=== PATIENT | female | born 1960 | race American Indian/Alaskan Native ===

== ENCOUNTER 2018-05-14 05:23 | Day surgery (SDC) | payer OTHER ==
[~2018-05-14] VITALS: Ht 170.2 cm; Wt 78.0 kg
[~2018-05-14 05:23] MED LIST: ACCUNEB SO1.25 MG/1 INH; AMITRIPTYLINE H50 M2 PO; BLACK COHOSH40 MG PO; FLEXERIL PO; GABAPENTIN800 M1 PO; HYDROCODON-ACE1 EAC5 PO; IBUPROFEN 800800 M1 PO; KLOR-CON 1010 MEQ PO; LISINOPRIL5 MG PO; OMEPRAZOLE40 MG PO; PHENERGAN 25 MG25 M1 PO; TOPROL XL25 MG PO; VENTOLIN HFA 1818 GM INH
[2018-05-14 06:19] VITALS: BP 162/91
[2018-05-14 06:43] LABS: HEMATOCRIT 44.6 % (37.0-47.0); HEMOGLOBIN 15.3 gm/dL (12.0-15.0)
--- NOTE | 2018-05-14 08:01 | EKG ---
[address] [place] [address] ELECTROCARDIOGRAM REPORT Name: SARAI LANDRY Room #: [address] [place] [address]#: [id number] Admission: 05/14/18 Attend Phys: Glenn Gonzalez Discharge: Date of : 58 Report #: [id number] THIS REPORT FOR: //name// [facility] Test Date: 2018-05-14 Test Time: 06:16:29 Pat Name: SARAI LANDRY Department: Room: 150 Gender: F [employer] Lieutenant: SURENDRA : 1960 Requested By: Glenn Granados Order Number: [id number] MD: Isma Nguyễn Measurements Intervals [place] Rate: 84 P: 67 NM: 165 QRS: 4 QRSD: 96 T: 63 QT: 393 QTc: 465 Interpretive Statements Sinus rhythm Normal tracing No previous ECG available for comparison Electronically Signed On 05-14-2018 8:01:10 LAST SORTER by Isma Nguyễn [email or web address] <ELECTRONICALLY SIGNED> By: Isma Nguyễn MD, [facility] 05/14/18 0801 0616 5 Isma Nguyễn MD, FACC /EPI
[2018-05-14] MEDS ORDERED: SENNA8.6 MG PO (08:50)
[2018-05-14] MEDS ORDERED: NORCO 5-325 TA1 EACH PO (08:50)
[2018-05-14] MEDS ORDERED: ONDANSETRON HCL4 M2 PO (08:50)
[2018-05-14 10:00] VITALS: BP 162/91
== END 2018-05-14 13:05 | disposition home or self-care (01) ==
LOC: OR 05:23 → TBA 05:24 → OR 09:55
PROVIDERS: Surgery
DX: K80.10 Calculus of gallbladder with chronic cholecystitis without obstruction (principal); K82.8 Other specified diseases of gallbladder; I10 Essential (primary) hypertension; J43.9 Emphysema, unspecified; E78.5 Hyperlipidemia, unspecified; K21.9 Gastro-esophageal reflux disease without esophagitis; F17.210 Nicotine dependence, cigarettes, uncomplicated; Z90.710 Acquired absence of both cervix and uterus; Z86.73 Personal history of transient ischemic attack (TIA), and cerebral infarction without residual deficits; Z98.890 Other specified postprocedural states; Z79.899 Other long term (current) drug therapy; Z88.0 Allergy status to penicillin; Z88.2 Allergy status to sulfonamides; Z88.8 Allergy status to other drugs, medicaments and biological substances; Z79.891 Long term (current) use of opiate analgesic
CPT/HCPCS: 50010; 50101; 50249; 50411; 50555; 50558; 50962; 51297; 51489; 51975; 52265; 53307; 53310; 54022; 54118; 55245; 55317; 56462; 56525; 56526; 62110; 62900; 70005